=== PATIENT | male | born 1965 | race Two or more races ===

== ENCOUNTER 2020-03-04 02:50 | Emergency (ER) | payer SELFPAY ==
[~2020-03-04] VITALS: Ht 167.6 cm; Wt 95.5 kg
[2020-03-04] MEDS ORDERED: ACETAMINOPHEN 500 MG TABLET PO ONE (04:30)
[2020-03-04 04:45] VITALS: BP 137/84
[2020-03-04 04:52] LABS: ABG A-A DIFF O2 71.1 mmHg (10-20.0); ABG BASE EXCESS -5.5 mmol/L (-2.0-3.0); ABG CARBOXYHEMOGLOBIN 0.1 % (0.0-1.5); ABG HCO3 20.7 mmol/L (22.0-26.0); ABG METHEMOGLOBIN 0.3 % (0.0-1.5); ABG OXYGEN CONTENT 24.1 mL/dL (15.0-23.0); ABG OXYGEN SATURATION 98.6 % (95.0-98.0); ABG OXYHEMOGLOBIN 98.2 % (94.0-100.0); ABG PCO2 37 mmHg (35-45); ABG PH 7.355 (7.35-7.450); ABG TOTAL HEMOGLOBIN 17.3 G/dL (12.0-18.0); PO2, ARTERIAL BG 142.7 mmHg (84.0-92.0); SOURCE, BLOOD GAS ARTERIAL; TEMPERATURE, FAHRENHEIT, BG 99.1 FAHREN (96.0-98.6)
[2020-03-04 04:53] LABS: O2 DEVICE,BLOOD GAS CANNULA (ROOM AIR); SITE, BLOOD GAS LFT RADIAL
== END 2020-03-04 05:17 | disposition home or self-care (01) ==
LOC: EMS 02:50
DX: R51 Headache (principal); Z77.22 Contact with and (suspected) exposure to environmental tobacco smoke (acute) (chronic)
CPT/HCPCS: 36600; 82805; 71046; 71046-TC